=== PATIENT | female | born 2000 | race African-American/Black ===

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

== ENCOUNTER 2025-01-13 13:16 | Emergency (ER) | payer MEDICAID ==
[~2025-01-13] VITALS: Ht 165.1 cm; Wt 82.0 kg
[2025-01-13 13:17] VITALS: O2SAT 100
[2025-01-13] MEDS: KETOROLAC 30MG/ML VIAL IV ONE (13:43)
[2025-01-13 14:02] LABS: PLATELET 382 x1000/uL (130-400); RED BLOOD CELL COUNT 4.07 mill/uL (4.2-5.4); RED CELL DISTRIBUTION WIDTH 14.2 % (11.6-14.6)
[2025-01-13] MEDS ORDERED: IBUP-1455 MT (14:29)
[2025-01-13] MEDS ORDERED: LIDO700A30 TP (14:29)
[2025-01-13] MEDS: LIDOCAINE 5% PATCH TOP SCH (14:30)
[2025-01-13 14:35] VITALS: BP 116/79; PULSE 84; RESP 20; TEMP 36.7; O2SAT 100
[2025-01-13 15:03] LABS: CREATININE 0.8 mg/dL (0.6-1.0); UREA NITROGEN BLOOD 7 mg/dL (9-23)
== END 2025-01-13 14:43 | disposition home or self-care (01) ==
LOC: ER 13:28
DX: R07.89 Other chest pain (principal); Z79.899 Other long term (current) drug therapy; V86.55XA Driver of 3- or 4- wheeled all-terrain vehicle (ATV) injured in nontraffic accident, initial encounter; Y93.89 Activity, other specified; Y92.89 Other specified places as the place of occurrence of the external cause; Y99.8 Other external cause status
CPT/HCPCS: 80048; 81025; 85027; 36415; 71046; 74176; 93005; 96374; 99285; J1885; Z7610

== ENCOUNTER 2025-02-25 23:13 | Emergency (ER) | payer MEDICAID ==
[~2025-02-25] VITALS: Ht 157.5 cm; Wt 100.0 kg
[~2025-02-25 23:13] MED LIST: IBUP-1455 MT; LIDO700A30 TP
[2025-02-25 23:17] VITALS: TEMP 37.1; O2SAT 100
[2025-02-25 23:47] LABS: BASOPHILS % 0.5 % (0.0-2.0); EOSINOPHILS % 0.9 % (0.0-5.0); HEMATOCRIT. 33.9 % (36.0-48.0); HEMOGLOBIN. 11.1 g/dL (12.0-16.0); LYMPHOCYTES % 39.0 % (20.0-50.0); MEAN PLATELET VOLUME 7.5 fl (7.4-10.4); MONOCYTES % 7.2 % (2.0-8.0); NEUTROPHILS % 52.4 % (40.0-76.0); PLATELET 340 x1000/uL (130-400); RED BLOOD CELL COUNT 3.93 mill/uL (4.2-5.4); RED CELL DISTRIBUTION WIDTH 14.2 % (11.6-14.6)
[2025-02-25 23:58] LABS: CLARITY URINE CLEAR (CLEAR); COLOR URINE YELLOW (YELLOW); GLUCOSE URINE NEGATIVE (NEGATIVE); KETONES URINE TRACE (NEGATIVE); LEUKOCYTE ESTERASE URINE NEGATIVE (NEGATIVE); NITRITE URINE NEGATIVE (NEGATIVE); OCCULT BLOOD URINE NEGATIVE (NEGATIVE); PH URINE 6.5 (4.5-8.0); PROTEIN URINE NEGATIVE (NEGATIVE); SPECIFIC GRAVITY URINE 1.031 (1.005-1.030); UROBILINOGEN URINE 1.0 E.U./dL (0.2-1.0)
[2025-02-26 00:03] LABS: CREATININE 0.9 mg/dL (0.6-1.0); UREA NITROGEN BLOOD 9 mg/dL (9-23)
[2025-02-26] MEDS: KETOROLAC 15MG/ML VIAL IM ONE (00:11)
[2025-02-26] MEDS: ONDANSETRON HCL 4MG TABLET PO ONE (00:12)
[2025-02-26 01:42] LABS: HCG SCREEN NEGATIVE
[2025-02-26 01:45] LABS: ASPARTATE AMINOTRANSFERASE 19 IU/L (<34); BILIRUBIN DIRECT < 0.1 mg/dL (<=3.0)
[2025-02-26 01:46] LABS: BILIRUBIN TOTAL 0.2 mg/dL (0.1-1.0); PROTEIN TOTAL 7.1 g/dL (6.0-8.3)
[2025-02-26] MEDS ORDERED: NAPR-1176 MT (02:50)
[2025-02-26] MEDS ORDERED: MAG-55 MT (02:50)
[2025-02-26 03:06] VITALS: BP 127/71; PULSE 75; RESP 13; O2SAT 100
== END 2025-02-26 03:07 | disposition home or self-care (01) ==
LOC: ER 23:13
DX: K52.9 Noninfective gastroenteritis and colitis, unspecified (principal); J45.909 Unspecified asthma, uncomplicated; L02.211 Cutaneous abscess of abdominal wall; D64.9 Anemia, unspecified; Z90.49 Acquired absence of other specified parts of digestive tract
CPT/HCPCS: 99285; 80076; 80048; 81003; 81025; 84703; 83690; 85025; 36415; 74176; 96372; J1885; Q0162

== ENCOUNTER 2025-05-07 11:33 | Emergency (ER) | payer MEDICAID ==
[~2025-05-07] VITALS: Ht 157.5 cm; Wt 107.0 kg
[~2025-05-07 11:33] MED LIST changes: +MAG-55 MT; +NAPR-1176 MT
[2025-05-07 11:37] VITALS: O2SAT 98
[2025-05-07] MEDS ORDERED: IBUP-1455 MT (14:48)
[2025-05-07] MEDS: IBUPROFEN 600MG TABLET PO ONE (14:58)
[2025-05-07 15:09] VITALS: BP 131/81; PULSE 74; RESP 18; TEMP 37.1; O2SAT 98
== END 2025-05-07 15:15 | disposition home or self-care (01) ==
LOC: ER 11:33
DX: S97.81XA Crushing injury of right foot, initial encounter (principal); J45.909 Unspecified asthma, uncomplicated; Z79.1 Long term (current) use of non-steroidal anti-inflammatories (NSAID); Z90.49 Acquired absence of other specified parts of digestive tract; W23.0XXA Caught, crushed, jammed, or pinched between moving objects, initial encounter; Y93.89 Activity, other specified; Y92.89 Other specified places as the place of occurrence of the external cause; Y99.8 Other external cause status
CPT/HCPCS: 73630; 99283; Z7610 ×2